=== PATIENT | male | born 1955 | race African-American/Black ===

== ENCOUNTER 2018-06-04 12:33 | Outpatient (CLI) | payer OTHER ==
--- NOTE | 2018-06-04 16:21 | RAD ---
LUMBAR SPINE 3 VIEWS: HISTORY: Chronic back pain. No history of trauma. COMPARISON: None. FINDINGS: Five [id number] lumbar-type vertebrae. No acute fracture or malalignment. There is some ossifi cation of the supraspinous ligament at the level of L4. Minimal disk space narrowing at L5-S1. Small anterior and posterior osteophytes throughout the lumba r spine. IMPRESSION: Mild spondylosis. No acute abnormality. POS: C
== END 2018-06-04 12:34 | disposition home or self-care (01) ==
LOC: MADRAD 12:33
PROVIDERS: ATTEND Orthopaedic Surgery
DX: M47.896 Other spondylosis, lumbar region (principal)
CPT/HCPCS: 72100

== ENCOUNTER 2020-05-17 08:43 | Outpatient (CLI) | payer OTHER ==
--- NOTE | 2020-05-17 10:07 | RAD ---
XR Lumbar Spine 2 Or 3 View HISTORY: Low back pain FINDINGS: Changes of mild lumbar spondylosis are stable since 06/04/2018. No acute fracture, subluxation or bony destruction is seen.
== END 2020-05-17 08:44 | disposition home or self-care (01) ==
LOC: MADRAD 08:43
PROVIDERS: ATTEND Orthopaedic Surgery
DX: M13.80 Other specified arthritis, unspecified site (principal)
CPT/HCPCS: 72100

== ENCOUNTER 2022-09-04 16:57 | Emergency (ER) | payer OTHER | END 2022-09-04 17:50 | disposition left against medical advice (07) | LOC: MADERS 16:57 | DX: Z53.21 Procedure and treatment not carried out due to patient leaving prior to being seen by health care provider (principal) ==